=== PATIENT | female | born 1985 | race African-American/Black ===

== ENCOUNTER 2020-05-24 21:34 | Emergency (ER) | payer OTHER, SELFPAY ==
--- NOTE | ~2020-05-24 | XR_ITS ---
EXAMINATION: XR chest 2V EXAM DATE: 05/24/2020 22:11 INDICATION: Midsternal chest pain. Symptoms 1 day. TECHNIQUE: Frontal and lateral projections of the chest obtained and reviewed. There is no prior ruby dy for comparison. FINDINGS: The lungs are clear. There are no pleural effusions. Mild cardiomegaly. There is no pneu mothorax suspected. The bones and soft tissues are unremarkable. IMPRESSION: Mild cardiomegaly. Reviewed, dictated and finalized at location A. IMPRESSION: Mild cardiomegaly.
[2020-05-24 21:38] VITALS: BP 204/123; PULSE 83; RESP 17; TEMP 36.8; O2SAT 97
--- NOTE | 2020-05-24 21:38 | ECG_ITS ---
Measurements Intervals [place] Rate: 70 P: 41 [place]: 166 QRS: 1 QRSD: 94 T: 23 QT: 381 QTc: 413 Interpretive Statements SINUS RHYTHM DELAYED PRECORDIAL R/S TRANSITION BASELINE WANDER- I, II, III, AVR, AVL, AVF BORDERLINE ECG Electronically Signed On 05-25-2020 7:04:27 CDT by Juventino Bobo D.O.
--- NOTE | 2020-05-24 21:44 | ED.CHESTPAIN ---
HPI - Chest Pain General Chief Complaint: Chest Pain Stated Complaint: cp and discomfort all day Time Seen by Provider: 05/24/20 21:37 Source: RN notes reviewed History of Present Illness HPI narrative: Patient presents emergency department from home for chest pain. Patient states pain began upon awaking this morning pain is located in the lower midsternal chest and does not radiate. Described as a pressure. States pain is worse with deep inspiration. She denies any fevers or chills shortness of breath abdominal pain nausea vomiting or any other symptoms. States she took no pain medication for the symptoms today Related Data Allergies Allergy/AdvReac Type Severity Reaction Status Date / Time No Known Allergies Allergy Verified 05/24/20 21:42 Review of Systems Review of Systems: Narrative: Gen.: Denies fevers or chills ENT: Denies congestion Respiratory: Denies shortness of breath or cough CV: See HPI GI: Denies abdominal pain nausea, emesis or diarrhea Musculoskeletal: Denies back pain or muscle pain Neuro: Denies numbness, tingling, weakness or focal weakness Skin: Denies rash Except as documented, all other systems reviewed and negative [facility] Past Medical History Medical History (Updated 05/25/20 @ 01:23 by Amrik Eli DO) Patient denies significant medical history Family History Family History (Updated 12/16/17 @ 09:52 by DOCTOR UNKNOWN) Grandparent Hypertension Social History Social History Smoking status: Never smoker Alcohol intake: current Exam Narrative: Exam Narrative: APPEARANCE: No acute distress, nontoxic, resting in bed EYES: EOMI HEENT: Normocephalic, atraumatic, OMM RESPIRATORY: No respiratory distress Clear to auscultation bilaterally with no rhonchi wheezing or rales. CARDIOVASCULAR: Regular rate and rhythm without murmurs rubs or gallops. Chest: Tender palpation of her lower midsternal chest pain increased with deep inspiration ABDOMINAL: Soft, nontender, nondistended, no rebound or guarding MUSCULOSKELETAl: Moves all extremities. No clubbing, cyanosis or edema. NEURO: Awake and alert. Following commands, speech normal, no focal deficits SKIN:: Warm, dry. No rashes lesions or abrasions PSYCHIATRIC: Normal affect/mood, Course Course Emergency Course: Patient states pain is improved with Toradol and resolved with GI cocktail Patient meets PERC rule criteria and no further testing needs to be performed for pulmonary embolism. Discussed with patient results of workup and diagnosis. Discussed need for follow-up with primary care, proper use of medication, and reasons to return to the emergency department. Patient understands and agrees to current treatment plan Vital Signs Vital signs: Vital Signs Temperature 98.2 F 05/24/20 21:38 Pulse Rate 83 05/24/20 21:38 Respiratory Rate 17 05/24/20 21:38 Blood Pressure 204/123 H 05/24/20 21:38 Pulse Oximetry 97 05/24/20 21:38 Temperature 98.0 F 05/25/20 01:26 Pulse Rate 59 L 05/25/20 01:26 Respiratory Rate 18 05/25/20 01:26 Blood Pressure 174/98 H 05/25/20 01:26 Pulse Oximetry 100 05/25/20 01:26 MDM - Chest Pain MDM Narrative Medical decision making narrative: Patient's EKGs and labs are without significant high risk changes. Cardiac risk factors reviewed. Patient is felt likely low risk for ACS and reasonable for further risk stratification testing as an outpatient. Pain was not sudden or maximal in onset without tearing or ripping quality. No other signs of symptoms suggest aortic dissection. A low-risk Wells criteria is noted, PE is felt to be unlikely. No pneumonia seen on evaluation today. Patient is felt to be a reasonable candidate for continued evaluation as an outpatient. Pain constant all day today resolved with medications in ED. 2- troponins in ER Lab Data Result diagrams: 05/24/20 21:47 05/24/20 22:16 Cele
[2020-05-24 21:54] LABS: Basophils Absolute Auto 0.1 K/mm3 (0.0-0.1); Basophils Percent Auto 1.3 % (0.2-1.2); Eosinophils Absolute Auto 0.3 K/mm3 (0-0.3); Eosinophils Percent Auto 3.8 % (0-4.4); Hematocrit 37.7 % (37.0-47.0); Hemoglobin 12.3 g/dL (12.0-15.0); Immature Granulocyte Absolute 0.01 K/mm3 (0.00-0.031); Immature Granulocyte Percent A 0.1 % (0-0.5); Lymphocytes Absolute Auto 3.72 K/mm3 (0.9-3.2); Lymphocytes Percent Auto 46.7 % (18.3-44.2); Mean Corpuscular HGB Conc 32.6 g/dl (32-36); Mean Corpuscular Hemoglobin 28.1 pg (26-34); Mean Corpuscular Volume 86.1 fl (80-100); Mean Platelet Volume 11.7 fl (7.4-10.4); Monocytes Absolute Auto 0.5 K/mm3 (0.1-0.6); Monocytes Percent Auto 6.7 % (2.6-8.5); Neutrophils Absolute Auto 3.3 K/mm3 (1.3-6.7); Neutrophils Percent Auto 41.4 % (45.5-73.1); Platelet Count Result 298 k/mm3 (150-375); Red Blood Count 4.38 M/mm3 (4.2-5.4)
[2020-05-24 22:07] VITALS: PULSE 79
[2020-05-24] MEDS: KETOROLAC 30 MG/ML VIAL (*BKC) IV PUSH (22:27)
[2020-05-24 22:32] VITALS: BP 182/109; PULSE 57; RESP 16; O2SAT 99
[2020-05-24 22:32] LABS: INR 1.1; Partial Thromboplastin Time 28.2 SECONDS (22.3-36.8); Prothrombin Time 13.5 Seconds (11.1-14.7)
[2020-05-24 22:37] LABS: Anion Gap 8 mmol/L (8-16); Blood Urea Nitrogen 21 mg/dL (7-17); Calcium 9.2 mg/dL (8.4-10.2); Carbon Dioxide 25 mmol/L (22-30); Chloride 104 mmol/L (98-107); Estimated CRCL calculation 90 ml/min; Estimated Glomerular Filt Rate > 60; Glucose 98 mg/dL (65-105); Lipase 115 U/L (23-300); Potassium 3.7 mmol/L (3.4-5.0); Sodium 137 mmol/L (137-145)
[2020-05-24 22:49] LABS: Troponin I < 0.012 ng/mL (0.000-0.034)
[2020-05-24 22:50] LABS: Alanine Aminotransferase 9 U/L (4-35); Alkaline Phosphatase 62 U/L (38-126); Aspartate Amino Transferase 20 U/L (14-36); Bilirubin,Total 0.3 mg/dL (0.2-1.3)
[2020-05-24 22:57] VITALS: TEMP 36.8
[2020-05-24 23:31] VITALS: BP 167/98; PULSE 53; RESP 16; O2SAT 100
[2020-05-25 01:12] LABS: Troponin I < 0.012 ng/mL (0.000-0.034)
[2020-05-25 01:26] VITALS: BP 174/98; PULSE 59; RESP 18; TEMP 36.7; O2SAT 100
== END 2020-05-25 01:52 | disposition home or self-care (01) ==
PROVIDERS: Emergency Provider Emergency Medicine
DX: R07.89 Other chest pain (principal); I51.7 Cardiomegaly; R94.31 Abnormal electrocardiogram [ECG] [EKG]
CPT/HCPCS: 36415; 71046; 80048; 80076; 83690; 84484; 85025; 85610; 85730; 93005; 96374; 99284; A9270; J1885

== ENCOUNTER 2023-05-14 10:13 | Outpatient (CLI) | payer OTHER, SELFPAY ==
[2023-05-14 11:31] LABS: Alanine Aminotransferase 13 U/L (6-35); Albumin Level 4.1 g/dL (3.5-5.1); Alkaline Phosphatase 56 U/L (38-126); Anion Gap 3 mmol/L (8-16); Aspartate Amino Transferase 33 U/L (14-36); Bilirubin,Total 0.2 mg/dL (0.2-1.3); Blood Urea Nitrogen 17 mg/dL (7-17); Carbon Dioxide 32 mmol/L (22-30); Chloride 101 mmol/L (98-107); Cholesterol 108 mg/dL (0-200); Estimated Glomerular Filt Rate > 60; Glucose 100 mg/dL (65-110); HDL Direct 37 mg/dL; Potassium 3.4 mmol/L (3.4-5.0); Sodium 136 mmol/L (137-145); Triglycerides 131 mg/dL (<150)
[2023-05-14 12:38] LABS: Hemoglobin A1C 5.4 % (<5.7)
[2023-05-14 13:29] LABS: LDL Cholesterol Direct < 30 mg/dL
== END 2023-05-14 10:14 | disposition home or self-care (01) ==
LOC: ANHGOSHLAB 10:14
PROVIDERS: PCP Family Medicine; Visit Provider Family Medicine
DX: Z13.220 Encounter for screening for lipoid disorders (principal); E11.9 Type 2 diabetes mellitus without complications; Z13.228 Encounter for screening for other metabolic disorders
CPT/HCPCS: 36415; 80053; 80061; 83036

== ENCOUNTER 2024-02-12 13:35 | Emergency (ER) | payer OTHER, SELFPAY ==
[2024-02-12 13:54] VITALS: BP 160/108; PULSE 99; RESP 19; TEMP 38; O2SAT 100
--- NOTE | 2024-02-12 14:15 | ED.URI ---
HPI - URI/Sore Throat General Chief Complaint: Upper Respiratory Infection Stated Complaint: Flu Symptoms Time Seen by Provider: 02/12/24 14:09 Source: patient and RN notes reviewed Mode of arrival: ambulatory Limitations: no limitations History of Present Illness HPI Narrative: Patient presents today complaining body aches, subjective fever, sore throat, chills, cough since yesterday. Symptoms have worsened today. No [id number] treatment prior to arrival. She is also complaining of some urinary symptoms to include frequency, urgency. No dysuria or hematuria. She is not currently menstruating. No abdominal pain or flank pain. Related Data Allergies Allergy/AdvReac Type Severity Reaction Status Date / Time No Known Allergies Allergy Verified 02/12/24 14:13 Review of Systems Review of Systems: CONSTITUTIONAL: Denies sweats.+ fever, chills EYES: Denies visual changes, redness, or discharge. ENT: + sore throat CARDIOVASCULAR: Denies chest pain, palpitations, or edema. RESPIRATORY: Denies dyspnea.+ cough GASTROINTESTINAL: Denies abdominal pain, nausea, vomiting, or diarrhea. GENITOURINARY: Denies dysuria or hematuria.+ frequency, urgency SKIN: Denies rash, itching, or wounds. MUSCULOSKELETAL: Denies back pain, joint pain, or myalgia. NEUROLOGIC: Denies headache, numbness, tingling, or weakness. PSYCH: Denies depression or anxiety. [facility] Past Medical History Medical History Encounter for general adult medical examination without abnormal findings Patient denies significant medical history Family History Family History Grandparent Hypertension Father Alcoholism Social History Social History Smoking status: Never smoker Alcohol intake: current Alcohol use details: occasionally Substance use: never Lack of Transportation: No Lack of Food: Never True Current Housing: I Have Housing Concerned About Future Housing: No Difficulty Paying Gas/Electric Bills: No Difficulty Paying for Meds: No Currently Unemployed: No Education: Associate Degree Difficulty w/ Childcare or Family Care: No Living arrangements: with family Occupation/Education: occupation 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 Please see nursing chart for further information. There is no relevant family history pertinent to the presenting complaint Exam Narrative: GENERAL: Mildly ill-appearing, well-nourished, and in no acute distress. HEAD: Normocephalic, atraumatic. EYES: EOMI. No redness or drainage. Conjunctivae normal. ENT: Mucous membranes pink and moist. Nares clear. No rhinorrhea. TMs normal bilaterally. Throat mildly erythematous. Tonsils 2 to 3+ without exudate. Uvula midline. NECK: Normal AROM. Supple. No lymphadenopathy. CHEST: No respiratory distress. Clear to auscultation. HEART: Regular rate and rhythm. No murmur appreciated. EXTREMITIES: Normal range of motion. No edema. SKIN: Warm, dry, no rash. Capillary refill normal. Normal skin turgor. NEURO: No focal deficits. Alert and oriented x3. Gait steady. PSYCH: Normal affect. No signs of depression or anxiety. Course Course Level of Care: Express Care Visit Vital Signs Vital signs: Vital Signs Temperature 100.4 F H 02/12/24 13:54 Pulse Rate 99 02/12/24 13:54 Respiratory Rate 19 02/12/24 13:54 Blood Pressure 160/108 H 02/12/24 13:54 Pulse Oximetry 100 02/12/24 13:54 Oxygen Delivery Room Air 02/12/24 13:54 Temperature 100.4 F H 02/12/24 13:54 Pulse Rate 99 02/12/24 13:54 Respiratory Rate 19 0
== END 2024-02-12 14:33 | disposition home or self-care (01) ==
PROVIDERS: Emergency Provider Nurse Practitioner; PCP Family Medicine
DX: B34.9 Viral infection, unspecified (principal); N30.01 Acute cystitis with hematuria; Z20.822 Contact with and (suspected) exposure to COVID-19
CPT/HCPCS: 81003; 87081; 87086; 87088; 87426; 87804; 87880; 99213; G0463

== ENCOUNTER 2025-05-23 17:05 | Emergency (ER) | payer OTHER, SELFPAY ==
[2025-05-23 17:17] VITALS: BP 204/113; PULSE 61; RESP 16; TEMP 35.9; O2SAT 100
--- NOTE | 2025-05-23 17:22 | ED_ITS ---
HPI - Dizziness General Chief Complaint: Dizziness Stated Complaint: Chest Pain/Light headed Source: patient and RN notes reviewed Mode of arrival: ambulatory Limitations: no limitations History of Present Illness HPI Narrative: Patient is a 39-year-old female who presents to the [facility] with complaints of left-sided chest pain that has been ongoing past 4 days. She describes the pain as an intermittent tightness. She does state that the pain worsens with movement. She also reports dizziness and lightheadedness that has been ongoing for the last 4 days. She has known history of hypertension but has not been on meds for a year due to her Dr. leaving the practice. Her blood pressure is 204/113 upon arrival. Patient has no focal neurological deficits upon assessment. She is alert and oriented x4. Related Data Allergies Allergy/AdvReac Type Severity Reaction Status Date / Time No Known Allergies Allergy Verified 03/29/24 12:10 Review of Systems Review of Systems: CONSTITUTIONAL: Denies fever, chills, or sweats. EYES: Denies visual changes, redness, or discharge. ENT: Denies otalgia and sore throat CARDIOVASCULAR: Reports chest pain. RESPIRATORY: Denies cough or dyspnea. GASTROINTESTINAL: Denies abdominal pain, nausea, vomiting, or diarrhea. GENITOURINARY: Denies dysuria or hematuria. SKIN: Denies rash or itching. MUSCULOSKELETAL: Denies back pain, joint pain, or myalgia. NEUROLOGIC: Reports dizziness. Pertinent positives per HPI. [facility] Past Medical History Medical History Encounter for general adult medical examination without abnormal findings Patient denies significant medical history Family History Family History Grandparent Hypertension Father Alcoholism Social History Social History Smoking status: Never smoker Alcohol intake: current Alcohol use details: occasionally Substance use: never Lack of Transportation: No Lack of Food: Never True Current Housing: I Have Housing Concerned About Future Housing: No Difficulty Paying Gas/Electric Bills: No Difficulty Paying for Meds: No Currently Unemployed: No Education: Associate Degree Difficulty w/ Childcare or Family Care: No Living arrangements: with family Occupation/Education: occupation 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 There is no relevant family history pertinent to the patient complaint. Exam Narrative: GENERAL: This is a well-nourished, well-developed patient, in no apparent distress. HEAD: normocephalic, atraumatic. EYES: PERRL. Sclera clear/white. Vision is grossly intact. EARS: External ears normal, auditory canals clear and without drainage, TMs normal without perforation. Hearing grossly intact. NOSE: External nose normal with no obvious nasal discharge, nares without redness, no rhinorrhea. THROAT: Mucous membranes moist, posterior pharynx clear. NECK: Neck supple, non-tender without lymphadenopathy, masses or thyromegaly. CARDIOVASCULAR: Regular rate and rhythm without murmurs, gallops, or rubs. RESPIRATORY: Clear to auscultation. Breath sounds equal bilaterally. No wheezes, rales, or rhonchi. GASTROINTESTINAL: Abdomen soft, non-tender, nondistended. Bowel sounds are active. No hepato-splenomegaly, or palpable masses. No guarding. SKIN: warm, intact with no suspicious lesions or rash, good texture and turgor. NEURO: awake, alert, and oriented to person, place and time. There were no obvious focal neurologic abnormalities. Course Course Level of Care: Express Care Visit Vital Signs Vital signs: Vital Signs Temperature 96.6 F L 05/23/25 17:17 Pulse Rate 61 05/23/25 17:17 Respiratory Rate 16 05/23/25 17:17 Blood Pressure 204/113 H 05/23/25 17:17 Pulse Oximetry 100 05/23/25 17:17 Temperature 96.6 F L 05/23/25 17:17 Pulse Rate 61 05/23/25 17:17 Respiratory Rate 16 05/23/25 17:17 Blood Pressure 204/113 H 05/23/25 17:17 Pulse Oximetry 100 05/23/25 17:17 Reviewed Transfer Transfered to: [facility] Transportation: Other (private vehicle) Transfer rationale: chest pain, dizziness Accepting physician: Dr. Keane MDM - Dizziness MDM Narrative Medical decision making narrative: Patient was directed to [facility] ED for further evaluation and treatment for her chest pain and dizziness. Report was given to Dr. Keane, who accepted patient for transfer. Patient will be transferred via private vehicle. Differential Diagnosis Differential diagnosis: Likely orthostatic hypotension, cerebrovascular accident and other (acute coronary syndrome, angina, TIA, hypertensive urgency, hypertensive emergency) ECG Data EKG #1: ECG completion date: 05/23/25 ECG completion time: 17:25 Interpretation: Sinus bradycardia with a rate of 59 beats per minute. Normal axis, normal intervals, no acute ST elevation. Critical Care Time Critical Care Time Critical Care Time: No Discharge Plan Discharge Clinical Impression: Chest pain, Dizziness Patient Disposition: Acute Care Hospital Condition: Stable Additional Instructions: Go directly to [facility] ED for evaluation. Patient Language: Khmer Prescriptions: No Action losartan-hydrochlorothiazide 100-25 mg tablet 1 tablet PO DAILY Qty: 90 0RF Follow-up/Referrals: PHYSICIAN,CHARGEMASTER SPECIALIST [Primary Care Provider, Internal Medicine] Time of Disposition: 17:37
--- NOTE | 2025-05-23 17:23 | ECG_ITS ---
Test Date: 2025-05-23 17:25:29 Measurements Intervals [place] Rate: 59 P: 27 MD: 165 QRS: 1 QRSD: 88 T: 18 QT: 411 QTc: 409 Interpretive Statements SINUS BRADYCARDIA OTHERWISE NORMAL ELECTROCARDIOGRAM No previous ECG available for comparison Electronically Signed On 05-24-2025 15:57:32 CDT by Cricket Black M.D.
== END 2025-05-23 17:40 | disposition short-term general hospital (02) ==
PROVIDERS: Emergency Provider Nurse Practitioner
DX: R07.9 Chest pain, unspecified (principal); R42 Dizziness and giddiness
CPT/HCPCS: 93005; 99213; G0463

== ENCOUNTER 2025-05-23 18:01 | Emergency (ER) | payer OTHER, SELFPAY ==
--- NOTE | ~2025-05-23 | XR_ITS ---
Examination: XR chest 2V Clinical History: CP Comparison: 05/24/2020 Technique: PA and Lateral Findings: Cardiomediastinal silhouette normal size and configuration. Lungs clear. No acute bony abnormality. IMPRESSION: 1. No acute cardiopulmonary findings. Reviewed, dictated and finalized at location R.
--- NOTE | 2025-05-23 18:02 | ECG_ITS ---
Test Date: 2025-05-23 18:06:54 Measurements Intervals [place] Rate: 62 P: 32 CT: 153 QRS: -9 QRSD: 93 T: 13 QT: 399 QTc: 406 Interpretive Statements SINUS RHYTHM NORMAL ELECTROCARDIOGRAM Compared to ECG 05/23/2025 17:25:29 Sinus bradycardia no longer present Electronically Signed On 05-24-2025 15:59:25 CDT by Cricket Black M.D.
--- OUTSIDE RECORDS SUMMARY | 2025-05-23 18:02 | XMS_ITS | Clinical Summary ---
Author Organization [facility] Address [address] [place] [id number] Care Team Providers Care Online Merchant Name Role Phone Unavailable Primary Care Provider Unavailabl e Social History Tobacco Use Types Packs/Day Years Used Date Smoking Tobacco: Never Assessed Comments Unknown Sex and Gender Information Value Date Recorded Sex Assigned at Not on file Legal Sex Female 7:12 PM CDT Gender Identity Not on file Sexual Orientation Not on file Last Filed Vital Signs Vital Sign Reading Time Taken Comments Blood Pressure 148/96 11/03/2016 7:35 AM SALESPERSON NECKTIES Pulse 56 11/03/2016 7:35 AM SALESPERSON NECKTIES Temperature - - Respiratory Rate - - Oxygen Saturation - - Inhaled Oxygen Concentration - - Weight 103 kg (227 lb) 11/03/2016 7:35 AM SALESPERSON NECKTIES Height 166.4 cm (5' 5.5) 11/03/2016 7:35 AM SALESPERSON NECKTIES Body Mass Index 37.2 11/03/2016 7:35 AM SALESPERSON NECKTIES Plan of Treatment Health Maintenance Due Date Last Done Comments Cervical Cancer Screening Pa p Smear (Age 30 to 64) Every 3 Years 1984 Annual Physical 11/20/1987 Hepatitis C 2002 DTaP, Tdap and Td Vaccines ( 1 - Tdap) 11/20/2003 Hepatitis B Vaccines (1 of 3 - 19+ 3-dose series) 11/20/2003 HPV Vaccines (1 - 3-dose SCD M series) 11/20/2011 Cervical Cancer Screening Pa p with HPV Testing (Age 30 to 64) Every 5 Years 2014 Cervical Cancer Screening with HPV 2014 Mammogram Screening 2024 COVID-19 Vaccine (2023-2 5 season) 2025 Meningococcal B Vaccine Aged Out No l onger eligible based on patient's age to complete this topic Meningococcal Vaccine Aged Out No refugio lorelei eligible based on patient's age to complete this topic Pneumococcal Vaccine: Pediat rics (0 to 5 Years) and At-Risk Patients (6 to 49 Years) Aged Out No longer eligible b ased on patient's age to complete this topic RSV Immunizations Under 20 Months Aged Out No longer eligible based on patient's age to complete this topic
[2025-05-23 18:08] VITALS: BP 206/95; PULSE 63; RESP 19; TEMP 36.6; O2SAT 100
[2025-05-23 18:18] VITALS: BP 204/110; PULSE 60; PULSE 63; RESP 14; O2SAT 100
[2025-05-23 18:26] LABS: Hematocrit 37.8 % (37.0-47.0); Hemoglobin 11.9 g/dL (12.0-15.0); Immature Granulocyte Percent A 0.1 % (0-0.5); Lymphocytes Absolute Auto 3.10 K/mm3 (0.9-3.2); Mean Corpuscular HGB Conc 31.5 g/dl (32-36); Mean Corpuscular Hemoglobin 27.4 pg (26-34); Mean Corpuscular Volume 87.1 fl (80-100); Nucleated Red Blood Cells Absolute Auto 0.000 K/mm3 (0.0-0.012); Nucleated Red Blood Cells Perc 0.0 % (0.0-0.2); Platelet Count Result 273 k/mm3 (150-375); Red Blood Count 4.34 M/mm3 (4.2-5.4); White Blood Count 6.8 K/mm3 (4.5-10.0)
[2025-05-23] MEDS: LOSARTAN POTASSIUM 100 MG TABLET PO (18:37)
[2025-05-23 18:38] LABS: INR 1.0; Prothrombin Time 13.4 Seconds (11.1-14.7)
[2025-05-23] MEDS: KETOROLAC 30 MG/ML VIAL (*BKC) IV PUSH (18:38)
--- NOTE | 2025-05-23 18:38 | ED_ITS ---
HPI - Chest Pain General Chief Complaint: Chest Pain Stated Complaint: chest pain, dizzy, SOB Time Seen by Provider: 05/23/25 18:17 History of Present Illness HPI narrative: This is a 39-year-old female with history of hypertension who presents to the ED for chest pain. Patient states of that past 4 days, she has been having sternal and left lower chest pain. She has history of hypertension but she has not been on her prescribed medication as she has not been able to get in with her PCP. She has never had this pain before. Denies any recent illnesses. She has dyspnea on exertion but this has been going on for the past several weeks. She is a nonsmoker. Denies headache, changes vision, hematuria. Related Data Allergies Allergy/AdvReac Type Severity Reaction Status Date / Time No Known Allergies Allergy Verified 05/23/25 18:14 Review of Systems 2 Review of Systems: Gen.: Denies fevers or chills Eyes: Denies eye pain or visual change ENT: Denies congestion Respiratory: Denies shortness of breath or cough CV: As per HPI GI: Denies abdominal pain nausea, emesis or diarrhea denies burning, urgency, frequency or hematuria Musculoskeletal: Denies back pain or muscle pain Neuro: Denies numbness, tingling, weakness or focal weakness Skin: Denies rash Except as documented, all other systems reviewed and negative [facility] Past Medical History Medical History Encounter for general adult medical examination without abnormal findings Patient denies significant medical history Family History Family History Grandparent Hypertension Father Alcoholism Social History Social History Smoking status: Never smoker Alcohol intake: current Alcohol use details: occasionally Substance use: never Lack of Transportation: No Lack of Food: Never True Current Housing: I Have Housing Concerned About Future Housing: No Difficulty Paying Gas/Electric Bills: No Difficulty Paying for Meds: No Currently Unemployed: No Education: Associate Degree Difficulty w/ Childcare or Family Care: No Living arrangements: with family Occupation/Education: occupation 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 CARDIOVASCULAR: Regular rate and rhythm without murmurs rubs or gallops. Tenderness palpation to the lower sternum without crepitus or deformity. ABDOMINAL: Soft, nontender, nondistended, no rebound or guarding MUSCULOSKELETAl: Moves all extremities. No clubbing, cyanosis or edema. NEURO: Awake and alert. Following commands, speech normal, no focal deficits SKIN:: Warm, dry. No rashes lesions or abrasions PSYCHIATRIC: Normal affect/mood, Course Vital Signs Vital signs: Vital Signs Temperature 98 F 05/23/25 18:08 Pulse Rate 63 05/23/25 18:08 Respiratory Rate 19 05/23/25 18:08 Blood Pressure 206/95 H 05/23/25 18:08 Pulse Oximetry 100 05/23/25 18:08 Oxygen Delivery Room Air 05/23/25 18:08 Temperature 98 F 05/23/25 18:08 Pulse Rate 58 L 05/23/25 19:08 Respiratory Rate 20 05/23/25 19:08 Blood Pressure 156/99 H 05/23/25 19:08 Pulse Oximetry 100 05/23/25 19:08 Oxygen Delivery Room Air 05/23/25 18:18 MDM - Chest Pain MDM Narrative Medical decision making narrative: 39-year-old female who presents to the ED for chest pain tension. On initial evaluation, patient was in no acute distress, afebrile, hemodynamically stable. She is hypertensive to 200/90s. She had reproducible chest wall tenderness to palpation. Otherwise heart and lungs clear. Abdomen soft nontender. She had a nonfocal neuro exam. She was given her prior dose of losartan-HCTZ, she was also given Toradol and Lidoderm. Cbc and CMP without significant abnormalities. Troponin negative. Chest x-ray showed no acute process. Blood pressure improved to 156/99. She had complete resolution of her chest pain. As she does not have a PCP at this time, she was given referral to [facility]. She was given a refill of her losartan-HCTZ. Patient was agreeable to the plan. Given strict return precautions. Differential Diagnosis Differential diagnosis: Likely other (hypertensive emergency, hypertensive urgency, acs, costochondritis) Medical Records Data Attestation: I reviewed the patient's medical records. Lab Data Attestation: I reviewed the patient's lab results. 05/23/25 18:17 05/23/25 18:17 Labs: Lab Results 05/23/25 Range/Units 18:17 WBC 6.8 (4.5-10.0) K/mm3 RBC 4.34 (4.2-5.4) M/mm3 Hgb 11.9 L (12.0-15.0) g/dL Hct 37.8 (37.0-47.0) % MCV 87.1 (80-100) fl MCH 27.4 (26-34) pg MCHC 31.5 L (32-36) g/dl RDW 14.6 H (11.5-14.5) % Plt Count 273 (150-375) k/mm3 MPV 11.2 H (7.4-10.4) fl Immature Gran % (Auto) 0.1 (0-0.5) % Neut % (Auto) 43.3 L (45.5-73.1) % Lymph % (Auto) 45.3 H (18.3-44.2) % [place] % (Auto) 8.3 (2.6-8.5) % Eos % (Auto) 2.0 (0-4.4) % Baso % (Auto) 1.0 (0.2-1.2) % Lymph # (Auto) 3.10 (0.9-3.2) K/mm3 [place] # (Auto) 0.6 (0.1-0.6) K/mm3 Eos # (Auto) 0.1 (0-0.3) K/mm3 Baso # (Auto) 0.1 (0.0-0.1) K/mm3 Abs Immat Gran (auto) 0.01 (0.00-0.031) K/mm3 Absolute Neuts (auto) 3.0 (1.3-6.7) K/mm3 Absolute Nucleated RBC 0.000 (0.0-0.012) K/mm3 Nucleated RBC % 0.0 (0.0-0.2) % PT 13.4 (11.1-14.7) Seconds INR 1.0 APTT 27.1 (22.3-36.8) Seconds Sodium 138 (137-145) mmol/L Potassium 3.3 L (3.4-5.0) mmol/L Chloride 104 (98-107) mmol/L Carbon Dioxide 26 (22-30) mmol/L Anion Gap 8 (4-12) mmol/L BUN 15 (7-17) mg/dL Creatinine 0.97 (0.7-1.0) mg/dL Estim Creat Clear Calc 80 ml/min Estimated GFR > 60 (59 - ) Glucose 108 (65-110) mg/dL Calcium 9.5 (8.4-10.2) mg/dL Total Bilirubin 0.3 (0.2-1.3) mg/dL AST 24 (14-36) U/L ALT 11 (6-35) U/L Alkaline Phosphatase 72 (38-126) U/L Troponin I < 0.012 (0.000-0.034) ng/mL Total Protein 7.9 (6.3-8.2) g/dL Albumin 4.1 (3.5-5.1) g/dL Lipase 84 (23-300) U/L Imaging Data Radiologist's impression: Impressions Chest X-Ray 05/23/25 18:30 IMPRESSION: 1. No acute cardiopulmonary findings. ECG Data EKG #1: ECG completion date: 05/23/25 ECG completion time: 18:06 Interpretation: Normal sinus rhythm rate of 62, normal axis, normal intervals, no acute ST or T- wave changes Discharge Plan Discharge Clinical Impression: Atypical chest pain Hypertension Qualifiers: Hypertension type: unspecified Qualified Code(s): I10 - Essential (primary) hypertension Patient Disposition: Home Condition: Stable Instructions: Antibiotic Form, Chest Pain (ED), Hypertension (ED) Additional Instructions: Take the losartan-hydrochlorothiazide as prescribed. You were also given a prescription for Lidoderm, take this as prescribed. Urine given a referral to Dr. Montesinos, follow-up with his office in the next week to establish care. Return to the ED for any new or worsening symptoms. Patient Language: Spanish Prescriptions: New lidocaine [Lidocan III] 5 % adhesive patch,medicated 1 patch topical DAILY Qty: 15 0RF Rx Instructions: leave on most painful area for up to 12 hrs losartan-hydrochlorothiazide 100-25 mg tablet 1 tablet PO DAILY Qty: 30 0RF No Action losartan-hydrochlorothiazide 100-25 mg tablet 1 tablet PO DAILY Qty: 90 0RF Follow-up/Referrals: PHYSICIAN,SUPERVISOR ACCOUNTS RECEIVABLE [Primary Care Provider, Internal Medicine] Davion Montesinos MD [Physician, Family Practice]
[2025-05-23 18:39] LABS: Partial Thromboplastin Time 27.1 Seconds (22.3-36.8)
[2025-05-23 18:41] LABS: Alanine Aminotransferase 11 U/L (6-35); Albumin Level 4.1 g/dL (3.5-5.1); Alkaline Phosphatase 72 U/L (38-126); Anion Gap 8 mmol/L (4-12); Aspartate Amino Transferase 24 U/L (14-36); Bilirubin,Total 0.3 mg/dL (0.2-1.3); Blood Urea Nitrogen 15 mg/dL (7-17); Calcium 9.5 mg/dL (8.4-10.2); Carbon Dioxide 26 mmol/L (22-30); Chloride 104 mmol/L (98-107); Estimated CRCL calculation 80 ml/min; Estimated Glomerular Filt Rate > 60; Glucose 108 mg/dL (65-110); Lipase 84 U/L (23-300); Potassium 3.3 mmol/L (3.4-5.0); Sodium 138 mmol/L (137-145); Total Protein 7.9 g/dL (6.3-8.2)
[2025-05-23] MEDS: LIDOCAINE 5% PATCH 1 PATCH TRANSDERM (18:41)
[2025-05-23 18:48] LABS: Troponin I < 0.012 ng/mL (0.000-0.034)
[2025-05-23 19:08] VITALS: BP 156/99; PULSE 58; RESP 20; O2SAT 100
== END 2025-05-23 19:09 | disposition home or self-care (01) ==
PROVIDERS: Emergency Medicine; Emergency Provider Student in an Organized Health Care Education/Training Program
DX: R07.89 Other chest pain (principal); I10 Essential (primary) hypertension
CPT/HCPCS: 36415; 71046; 80053; 83690; 84484; 85025; 85610; 85730; 93005; 96374; 99284; A9270; J1885

== ENCOUNTER 2025-09-08 16:33 | Emergency (ER) | payer OTHER, SELFPAY ==
[2025-09-08 16:47] VITALS: BP 200/112; PULSE 67; RESP 18; TEMP 36.3; O2SAT 100
[2025-09-08 17:00] VITALS: BP 198/110
--- NOTE | 2025-09-08 17:31 | ED_ITS ---
HPI - General Adult General Chief complaint: Headache Stated complaint: headache, thinks high B/P Time Seen by Provider: 09/08/25 17:31 Source: patient, RN notes reviewed and old records reviewed Mode of arrival: ambulatory Limitations: no limitations History of Present Illness HPI narrative: Year old female presents to the [facility] with headache that has been on 1st stick. States that she has been trying to lose weight? eat better. Patient presents that since yesterday she has had a excruciating headache. Denies any neuro symptoms. Has not taken blood pressure medication in several months Treatments prior to arrival: none Related Data Allergies Allergy/AdvReac Type Severity Reaction Status Date / Time No Known Allergies Allergy Verified 09/08/25 17:02 Review of Systems Review of Systems: All systems reviewed & are unremarkable except as noted in HPI and below Constitutional: Constitutional: Reports no additional constitutional complaints ENT: Reports system reviewed and no additional complaints, except as documented Cardiovascular: Cardiovascular: Reports no additional cardiovascular co mplaints, Denies chest pain and Denies dyspnea Respiratory: Respiratory: Reports no additional respiratory complaints, Denies chest congestion, Denies cough and Denies dyspnea Musculoskeletal: Musculoskeletal: Reports no additional musculoskeletal complaints Integumentary/Breasts: Skin/Breast: Reports system reviewed and no additional complaints, except as docu Neurologic: Reports as per HPI, Denies dizziness, Denies syncope, Reports headache(s) and Denies weakness PMFSH Past Medical History Medical History Encounter for general adult medical examination without abnormal findings Patient denies significant medical history Family History Family History Grandparent Hypertension Father Alcoholism Social History Social History Smoking status: Never smoker Alcohol intake: current Alcohol use details: occasionally Substance use: never Lack of Transportation: No Lack of Food: Never True Current Housing: I Have Housing Concerned About Future Housing: No Difficulty Paying Gas/Electric Bills: No Difficulty Paying for Meds: No Currently Unemployed: No Education: Associate Degree Difficulty w/ Childcare or Family Care: No Living arrangements: with family Occupation/Education: occupation 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 There is no relevant family history pertinent to the patient complaint. Exam Const: General: cooperative, healthy appearing, comfortable, no acute distress, well developed, alert and well nourished Nutritional Appearance: well nourished and obese Orientation/consciousness: patient oriented x3 Limitations: no limitations HENMT: Head: normal to inspection Eyes: General: appearance normal, both eyes and all related structures Alignment and Position: alignment normal Neck: Neck: normal visual inspection, full ROM, no lymphadenopathy and no meningeal signs Chest: Chest palpation & inspection: normal inspection of the chest Resp: Effort & Inspection: normal respiratory effort and able to speak in complete sentences Cardio: Rate: regular rate Skin: General skin exam: normal color and no rashes or lesions noted Neuro: General: patient oriented x3, gait normal, tone normal, moves all extremities, no meningeal signs and no focal motor deficits Cognition (Neuro): normal cognition Speech: normal speech Gait exam (Neuro): Normal gait present Extrem: General: normal to inspection, full ROM, capillary refill normal and normal gait Psych: Appearance: grossly normal and well kempt Mental Status: mental status grossly normal Speech and movement: Normal speech and movement present and Clear speech present Affect: normal affect Attitude: cooperative Course Course Level of Care: Express Care Visit Vital Signs Vital signs: Vital Signs Temperature 97.3 F L 09/08/25 16:47 Pulse Rate 67 09/08/25 16:47 Respiratory Rate 18 09/08/25 16:47 Blood Pressure 200/112 H 09/08/25 16:47 Pulse Oximetry 100 09/08/25 16:47 Oxygen Delivery Room Air 09/08/25 16:47 Temperature 97.3 F L 09/08/25 16:47 Pulse Rate 67 09/08/25 16:47 Respiratory Rate 18 09/08/25 16:47 Blood Pressure 198/110 H 09/08/25 17:00 Pulse Oximetry 100 09/08/25 16:47 Oxygen Delivery Room Air 09/08/25 16:47 reviewed MDM MDM Narrative Medical decision making narrative: Patient sitting in exam room. Patient appears uncomfortable, blood pressure is elevated Patient denies any light sensitivity, nausea vomiting or chest pain. No neuro deficits noted Patient being transferred for higher level All questions have been answered, and the patient deny any further questions Some parts of this dictation were generated by voice recognition software and may contain typographical and/or grammatical inaccuracies. Differential Diagnosis Differential Diagnosis: Differential diagnostic considerations for headache include ?ICH, IC infx, migraine, tension [place], CVA/TIA, vasculitis/arteritis, cluster headache, dissection (carotid/vertebral), tumor/mass/abscess, thrombosis, meningitis, sinusitis, post-concussion syndrome. Medical Records I have reviewed the following patient records and this information was taken into consideration when formulating the assessment and plan.: previous ER visits and previous clinic visits Discharge Plan Discharge Clinical Impression: Elevated blood pressure reading, Headache Patient Disposition: Acute Care Hospital Condition: Stable Patient Language: Micronesian Prescriptions: No Action lidocaine [Lidocan III] 5 % adhesive patch,medicated 1 patch topical DAILY Qty: 15 0RF Rx Instructions: leave on most painful area for up to 12 hrs losartan-hydrochlorothiazide 100-25 mg tablet 1 tablet PO DAILY Qty: 30 0RF losartan-hydrochlorothiazide 100-25 mg tablet 1 tablet PO DAILY Qty: 90 0RF Follow-up/Referrals: UNKNOWN,DOCTOR [Primary Care Provider] Time of Disposition: 17:41
== END 2025-09-08 17:40 | disposition short-term general hospital (02) ==
PROVIDERS: Emergency Provider Nurse Practitioner
DX: I10 Essential (primary) hypertension (principal); R51.9 Headache, unspecified; Z91.148 Patient's other noncompliance with medication regimen for other reason
CPT/HCPCS: 99212; G0463

== ENCOUNTER 2025-09-08 18:10 | Emergency (ER) | payer OTHER, SELFPAY ==
--- NOTE | ~2025-09-08 | XR_ITS ---
EXAMINATION: XR chest 2V 09/08/2025 18:55 INDICATION: Chest pain PROCEDURE: 2 view chest COMPARISON: 05/23/2025 FINDINGS: The lungs are clear. The cardiomediastinal silhouette is within normal limits. There are no pleural effusions. There is no pneumothorax suspected. IMPRESSION: 1: NO ACUTE CARDIOPULMONARY DISEASE. Reviewed, dictated and finalized at location [facility]
--- NOTE | ~2025-09-08 | CT_ITS ---
EXAMINATION: CT BRAIN W/O DATE: 09/08/2025 18:49 INDICATION: Headache. Hypertension. TECHNIQUE: Computed tomography (CT) of the head was performed without intravenous contrast. The dose-length product was 605.33 mGy-cm. COMPARISON: No prior studies for comparison. FINDINGS: Normal brain parenchymal volume for age. Normal tay-white differentiation. No acute intracranial hemorrhage, infarction, mass or mass effect. No ventriculomegaly or midline shift. Midline sagittal images demonstrate a normal corpus callosum, craniovertebral junction and sella turcica. Basilar cisterns are patent. Paranasal sinuses and mastoids are pneumatized. No depressed skull fractures. IMPRESSION: 1. No acute intracranial abnormality. Reviewed, dictated and finalized at location O. TECHNICIAN
--- NOTE | 2025-09-08 18:12 | ECG_ITS ---
Test Date: 2025-09-08 18:33:12 Measurements Intervals [place] Rate: 59 P: 25 RI: 157 QRS: -5 QRSD: 84 T: 14 QT: 405 QTc: 402 Interpretive Statements SINUS BRADYCARDIA CONSIDER ANTERIOR INFARCT, AGE INDETERMINATE BORDERLINE T WAVE ABNORMALITY- INFERIOR LEADS ABNORMAL ECG Compared to ECG 05/23/2025 18:06:54 NO SIGNIFICANT CHANGE Electronically Signed On 09-08-2025 19:46:12 [employer] SUPERVIS[employer] by Juventino Bobo D.O.
--- OUTSIDE RECORDS SUMMARY | 2025-09-08 18:12 | XMS_ITS | Data Portability ---
Author Organization [employer] , [facility] Address [address] [place] [address] Assessment No assessment recorded. Plan of Treatment Reminders Order Date Submit Date Provider Last Modified By Organization Details Last Modified Time Details Appointments None recorded. Lab bacterial vaginosis + vaginitis panel, vaginal 2023 024 [facility], [address] [place], [address], 4 15:16:59 CT + NG DNA, PCR, unspecified specimen 2023 024 [facility], [address] [place], [address], 4 15:17:01 HPV E6+E7 mRNA, qualitative PCR, cervix 2023 024 [facility], [address] [place], [address], 4 09:57:16 pap, LB 2023 024 [facility], [address] [facility], [place], [address], 4 10:27:55 bacterial vaginosis + vaginitis panel, vaginal 2022 023 [facility], [address] [place], [address], 3 17:28:54 bacterial vaginosis + vaginitis panel, vaginal 2021 [facility], [address] [place], [address], 2 09:58:18 bakari wet prep 2021 [email or web address] 0 [facility], [address], [place], [address], 2 11:05:17 CT + NG DNA, PCR, unspecified specimen 2021 [facility], [address] [place], [address], 2 14:52:15 Referral None recorded. Procedures None recorded. Surgeries None recorded. Imaging US, transvagina l 2021 Zhou Heiyae r3 [facility], [address] [place], [address], 3 17:13:51 MAMMO, diagnostic, tomosynthes is, bilateral - Left nipple inversion. Follow up u/s if indicated 2021 Zhou Heiyae r3 [facility], [address] [place], [address], 3 17:13:51 Medication Orders metronidazo le 500 mg tablet [address] [id number], [address] , [place], [place], [id number], 4 12:30:51 metronidazo le 500 mg tablet 2021 [email or web address][id number], [address] , [place], [place], [id number], 4 12:30:51 Patient TargetsNo targets recorded. Patient Instructions Encounter Date Encounter Id Patient Instructions Last Modified By Organization Details Last Modified Time 10/10/2021 [id number] vaginitis: care instructions [email or web address] Not available 10/10/2021 11:05:17 - Refrain from washcloth/loofah use, goncalves hubert products, frequent pantiliner use. - Pt instructed to wear cotton underwear, changing out of workout clothes quickly, hypoallergenic soap. -Discussed vaginal hygiene. -Encouraged safe sex. - Use a detergent free of dyes, enzymes and perfumes. Avoid using fabric softeners. Soak and rinse when using a stain removing product and then wash normally. Do not use a fabric softener. Soak and rinse in clear water all underwear and towels on when you have used a stain removing product. Then wash in your regular washing cycle. -Avoid tight clothing, especially clothing made of synthetic fabrics. Remove wet bathing and exercise clothing as soon as you can. - Avoid bath soaps, lotions, gels, etc. which contain perfumes. This includes many baby products and feminine hygiene products marked mild or for vaginal health. We suggest any of the following soaps: Dove-Hypoallergeni c, Neutrogena, Basis, or Pearls. Do not use soap directly on the vulvar skin just warm water and your hand will keep the vulvar area clean without irritating the skin. - Avoid all bubble baths, bath salts and scented oils. -Do not use hot water while bathing or showering. Only luke-warm water should only be used. -Avoid all feminine hygiene sprays, perfumes, adult, or baby wipes. Pour lukewarm water over the vulva after urinating if urine causes burning of the skin. Pat dry rather than rubbing with a towel. - Avoid the use of deodorized pads and tampons. Tampons should be used when the blood flow is heavy enough to soak one tampon in four hours or less. Tampons are safe for most women, but wearing them too long or when the blood flow is light may result in vaginal infection, increased discharge, odor, or toxic shock syndrome. Also, use only pads that have a cotton liner that comes in contact with your skin (no dry weave pads). - Avoid all over the counter creams or ointments, except A&D Ointment (if you have wool allergy do not use A&D). -DO NOT DOUCHE. Baking soda soaks will help rinse away extra discharge and help with odor. -DO NOT SHAVE, wax or laser the vulvar area (the bikini line is ok). -Some women may have problems with chronic dampness. Keeping dry is important. Choose cotton fabrics whenever you can. -Keep an extra pair of underwear with you in a small bag and change if you become damp during the day at work/school. -Gold Flores Powder or Zeosorb Powder may be applied to the vulva and groin area one to two times per day to help absorb moisture. -Dryness and irritation during intercourse may be helped by using a lubricant. Use a small amount of a pure vegetable oil/olive oil or Crisco (solid or oil). The vegetable oils contain no chemicals to irritate vulvar/vaginal skin. Vegetable oils will rinse away with water and will not increase your chances of infection. Water-based products like K-Y Jelly are helpful, but may tend to dry before intercourse is over and also contain chemicals that can irritate your vulvar skin. It may be helpful to use a non-lubricated, non-spermicidal condom, and use vegetable oil as the lubricant. This will help keep the semen off the skin which can decrease burning and irritation after intercourse. CONTROL OPTIONS 1. All hormonal contraceptives will have an effect on vaginal secretions but should not increase your frequency of vaginitis. 2. Lubricated condoms, contraceptive jellies, creams, or sponges may cause itching and burning. Ask your health care provider for help. 3. The use of latex condoms with a vegetable oil as a lubricant (#14 above) is suggested to protect your skin. Oil based lubricants may affect the integrity of condoms when used for control or prevention of sexually transmitted diseases. Our experience has not found this to be a problem with vegetable based oils. However, the Centers for Disease Control recommends that condoms not be used with any oil based lubricants for control or prevention of sexually transmitted disease. Discussed ureaplasma/mycopla sma testing and treatment, if indicated. [email or web address] Not available 10/04/2021 11:24:46 09/03/2022 [id number] A healthy lifestyle: care instructions [email or web address] Not available 09/03/2022 10:36:10 substance use disorder: care instructions [email or web address] Not available 09/03/2022 10:36:09 tobacco cessation [email or web address] Not availab le 09/03/2022 10:36:09 Following the MyPlate Food Guide: Care Instructions [email or web address] Not available 09/03/2022 10:36:10 exercise program : getting started [email or web address] Not available 09/03/2022 10:36:10 - Refrain from washcloth/loofah use, goncalves hubert products, frequent pantiliner use. - Pt instructed to wear cotton underwear, changing out of workout clothes quickly, hypoallergenic soap. -Discussed vaginal hygiene. -Encouraged safe sex. - Use a detergent free of dyes, enzymes and perfumes. Avoid using fabric softeners. Soak and rinse when using a stain removing product and then wash normally. Do not use a fabric softener. Soak and rinse in clear water all underwear and towels on when you have used a stain removing product. Then wash in your regular washing cycle. -Avoid tight clothing, especially clothing made of synthetic fabrics. Remove wet bathing and exercise clothing as soon as you can. - Avoid bath soaps, lotions, gels, etc. which contain perfumes. This includes many baby products and feminine hygiene products marked mild or for vaginal health. We suggest any of the following soaps: Dove-Hypoallergeni c, Neutrogena, Basis, or Pearls. Do not use soap directly on the vulvar skin just warm water and your hand will keep the vulvar area clean without irritating the skin. - Avoid all bubble baths, bath salts and scented oils. -Do not use hot water while bathing or showering. Only luke-warm water should only be used. -Avoid all feminine hygiene sprays, perfumes, adult, or baby wipes. Pour lukewarm water over the vulva after urinating if urine causes burning of the skin. Pat dry rather than rubbing with a towel. - Avoid the use of deodorized pads and tampons. Tampons should be used when the blood flow is heavy enough to soak one tampon in four hours or less. Tampons are safe for most women, but wearing them too long or when the blood flow is light may result in vaginal infection, increased discharge, odor, or toxic shock syndrome. Also, use only pads that have a cotton liner that comes in contact with your skin (no dry weave pads). - Avoid all over the counter creams or ointments, except A&D Ointment (if you have wool allergy do not use A&D). -DO NOT DOUCHE. Baking soda soaks will help rinse away extra discharge and help with odor. -DO NOT SHAVE, wax or laser the vulvar area (the bikini line is ok). -Some women may have problems with chronic dampness. Keeping dry is important. Choose cotton fabrics whenever you can. -Keep an extra pair of underwear with you in a small bag and change if you become damp during the day at work/school. -Gold Flores Powder or Zeosorb Powder may be applied to the vulva and groin area one to two times per day to help absorb moisture. -Dryness and irritation during intercourse may be helped by using a lubricant. Use a small amount of a pure vegetable oil/olive oil or Crisco (solid or oil). The vegetable oils contain no chemicals to irritate vulvar/vaginal skin. Vegetable oils will rinse away with water and will not increase your chances of infection. Water-based products like K-Y Jelly are helpful, but may tend to dry before intercourse is over and also contain chemicals that can irritate your vulvar skin. It may be helpful to use a non-lubricated, non-spermicidal condom, and use vegetable oil as the lubricant. This will help keep the semen off the skin which can decrease burning and irritation after intercourse. CONTROL OPTIONS 1. All hormonal contraceptives will have an effect on vaginal secretions but should not increase your frequency of vaginitis. 2. Lubricated condoms, contraceptive jellies, creams, or sponges may cause itching and burning. Ask your health care provider for help. 3. The use of latex condoms with a vegetable oil as a lubricant (#14 above) is suggested to protect your skin. Oil based lubricants may affect the integrity of condoms when used for control or prevention of sexually transmitted diseases. Our experience has not found this to be a problem with vegetable based oils. However, the Centers for Disease Control recommends that condoms not be used with any oil based lubricants for control or prevention of sexually transmitted disease. Discussed ureaplasma/mycopla sma testing and treatment, if indicated. [email or web address] Not available 09/03/2022 10:19:22 10/15/2022 [id number] vaginitis: care instructions [id number] Not available 10/15/2022 11:06:33 safer sex: care instructions [email or web address] Not available 10/15/2022 11:06:33 - Refrain from washcloth/loofah use, goncalves hubert products, frequent pantiliner use. - Pt instructed to wear cotton underwear, changing out of workout clothes quickly, hypoallergenic soap. -Discussed vaginal hygiene. -Encouraged safe sex. - Use a detergent free of dyes, enzymes and perfumes. Avoid using fabric softeners. Soak and rinse when using a stain removing product and then wash normally. Do not use a fabric softener. Soak and rinse in clear water all underwear and towels on when you have used a stain removing product. Then wash in your regular washing cycle. -Avoid tight clothing, especially clothing made of synthetic fabrics. Remove wet bathing and exercise clothing as soon as you can. - Avoid bath soaps, lotions, gels, etc. which contain perfumes. This includes many baby products and feminine hygiene products marked mild or for vaginal health. We suggest any of the following soaps: Dove-Hypoallergeni c, Neutrogena, Basis, or Pearls. Do not use soap directly on the vulvar skin just warm water and your hand will keep the vulvar area clean without irritating the skin. - Avoid all bubble baths, bath salts and scented oils. -Do not use hot water while bathing or showering. Only luke-warm water should only be used. -Avoid all feminine hygiene sprays, perfumes, adult, or baby wipes. Pour lukewarm water over the vulva after urinating if urine causes burning of the skin. Pat dry rather than rubbing with a towel. - Avoid the use of deodorized pads and tampons. Tampons should be used when the blood flow is heavy enough to soak one tampon in four hours or less. Tampons are safe for most women, but wearing them too long or when the blood flow is light may result in vaginal infection, increased discharge, odor, or toxic shock syndrome. Also, use only pads that have a cotton liner that comes in contact with your skin (no dry weave pads). - Avoid all over the counter creams or ointments, except A&D Ointment (if you have wool allergy do not use A&D). -DO NOT DOUCHE. Baking soda soaks will help rinse away extra discharge and help with odor. -DO NOT SHAVE, wax or laser the vulvar area (the bikini line is ok). -Some women may have problems with chronic dampness. Keeping dry is important. Choose cotton fabrics whenever you can. -Keep an extra pair of underwear with you in a small bag and change if you become damp during the day at work/school. -Gold Flores Powder or Zeosorb Powder may be applied to the vulva and groin area one to two times per day to help absorb moisture. -Dryness and irritation during intercourse may be helped by using a lubricant. Use a small amount of a pure vegetable oil/olive oil or Crisco (solid or oil). The vegetable oils contain no chemicals to irritate vulvar/vaginal skin. Vegetable oils will rinse away with water and will not increase your chances of infection. Water-based products like K-Y Jelly are helpful, but may tend to dry before intercourse is over and also contain chemicals that can irritate your vulvar skin. It may be helpful to use a non-lubricated, non-spermicidal condom, and use vegetable oil as the lubricant. This will help keep the semen off the skin which can decrease burning and irritation after intercourse. CONTROL OPTIONS 1. All hormonal contraceptives will have an effect on vaginal secretions but should not increase your frequency of vaginitis. 2. Lubricated condoms, contraceptive jellies, creams, or sponges may cause itching and burning. Ask your health care provider for help. 3. The use of latex condoms with a vegetable oil as a lubricant (#14 above) is suggested to protect your skin. Oil based lubricants may affect the integrity of condoms when used for control or prevention of sexually transmitted diseases. Our experience has not found this to be a problem with vegetable based oils. However, the Centers for Disease Control recommends that condoms not be used with any oil based lubricants for control or prevention of sexually transmitted disease. Discussed ureaplasma/mycopla sma testing and treatment, if indicated. [email or web address] Not available 10/10/2022 17:01:04 04/08/2024 [id number] A healthy lifestyle: care instructions [email or web address] Not available 04/08/2024 16:51:25 substance use disorder: care instructions [email or web address] Not available 04/08/2024 16:51:25 tobacco cessation [id number] Not availab le 04/08/2024 16:51:25 Following the MyPlate Food Guide: Care Instructions [id number] Not available 04/08/2024 16:51:25 exercise program : getting started [email or web address] Not available 04/08/2024 16:51:25 Reason for Referral None Reported. Results Created Date Observation Date Name Description Value Unit Range Abnormal Flag Note LastModifiedBy Organization Detail LastModifiedTime 10/10/19 22 10/11/2021 CT/NG chlamydia trachomatis CT neg negati ve If both Pap and Endoc ervic al swabs are colle cted, the Prese rvCyt Solut ion liqui d Pap speci men must be colle cted befor e the endoc ervic al swab speci men. Not Available [place], [address], 10/11/2021 14:52:15 10/10/19 22 10/11/2021 CT/NG neisseria gonorrhoeae GC neg negati ve If both Pap and Endoc ervic al swabs are colle cted, the Prese rvCyt Solut ion liqui d Pap speci men must be colle cted befor e the endoc ervic al swab speci men. Not Available [place], [address], 10/11/2021 14:52:15 10/10/19 22 10/10/2021 bakari wet prep Hyphae Absent Not Available [facility] [address] [place], [address], 10/04/2021 11:24:52 09/03/20 22 09/09/2022 VAGIN ITIS PLUS STD PANEL bacterial vaginosis BV POS negati ve abnormal Not Available [place], [address], 09/10/2022 09:58:18 09/03/20 22 09/09/2022 VAGIN ITIS PLUS STD PANEL harrison species C. spp neg negati ve normal Not Available [address], [address], 09/10/2022 09:58:18 09/03/20 22 09/09/2022 VAGIN ITIS PLUS STD PANEL harrison glabrata C. gla neg negati ve normal Not Available [address], [address], 09/10/2022 09:58:18 09/03/20 22 09/09/2022 VAGIN ITIS PLUS STD PANEL trichomonas vaginalis CV/TV TRICH POS negati ve abnormal Not Available [address], [address], 09/10/2022 09:58:18 09/03/20 22 09/09/2022 VAGIN ITIS PLUS STD PANEL chlamydia trachomatis CT neg negati ve normal This repor t is inten ded for us in clini clark monit oring and manag ement of patie nts. It is not inten ded for use in medic al-le gal appli catio n. Not Available [address], [address], 09/10/2022 09:58:18 09/03/20 22 09/09/2022 VAGIN ITIS PLUS STD PANEL neisseria gonorrhoeae GC neg negati ve normal This repor t is inten ded for us in clini clark monit oring and manag ement of patie nts. It is not inten ded for use in medic al-le gal appli catio n. Not Available [address], [address], 09/10/2022 09:58:18 10/15/19 23 10/16/2022 VAGIN ITIS PLUS STD PANEL bacterial vaginosis BV POS negati ve abnormal Not Available [address], [address], 10/16/2022 17:28:54 10/15/19 23 10/16/2022 VAGIN ITIS PLUS STD PANEL harrison species C. spp neg negati ve normal Not Available [facility] [address] [place], [address], 10/16/2022 17:28:54 10/15/19 23 10/16/2022 VAGIN ITIS PLUS STD PANEL harrison glabrata C. gla neg negati ve normal Not Available [facility] [address] [place], [address], 10/16/2022 17:28:54 10/15/19 23 10/16/2022 VAGIN ITIS PLUS STD PANEL trichomonas vaginalis CV/TV TRICH neg negati ve normal Not Available [facility] [address] [place] [address], [address], 10/16/2022 17:28:54 10/15/19 23 10/16/2022 VAGIN ITIS PLUS STD PANEL chlamydia trachomatis CT neg negati ve normal This repor t is inten ded for us in clini clark monit oring and manag ement of patie nts. It is not inten ded for use in medic al-le gal appli catio n. Not Available [facility] [address] [place] [address], [address], 10/16/2022 17:28:54 10/15/19 23 10/16/2022 VAGIN ITIS PLUS STD PANEL neisseria gonorrhoeae GC neg negati ve normal This repor t is inten ded for us in clini clark monit oring and manag ement of patie nts. It is not inten ded for use in medic al-le gal appli catio n. Not Available [facility] [address] [place], [address], 10/16/2022 17:28:54 04/08/20 24 04/08/2024 HPV HIGH RISK HPV high risk merged to [id number] Not Available [facility] [address] [place], [address], 04/09/2024 09:57:16 04/08/20 24 04/11/2024 VAGIN ITIS PANEL bacterial vaginosis BV neg negati ve normal Not Available [address], [address], 04/11/2024 15:16:59 04/08/20 24 04/11/2024 VAGIN ITIS PANEL harrison species C. spp neg negati ve normal Not Available [address], [address], 04/11/2024 15:16:59 04/08/20 24 04/11/2024 VAGIN ITIS PANEL harrison glabrata C. gla neg negati ve normal Not Available [address], [address], 04/11/2024 15:16:59 04/08/20 24 04/11/2024 VAGIN ITIS PANEL trichomonas vaginalis CV/TV TRICH POS negati ve abnormal Not Available [address], [address], 04/11/2024 15:16:59 04/08/20 24 04/11/2024 CT/NG chlamydia trachomatis CT neg negati ve normal This repor t is inten ded for us in clini clark monit ori and manag ement [facility]. It is not inten ded for use in medic al-le gal appli catio n. Not Available [address], [address], 04/11/2024 15:17:01 04/08/20 24 04/11/2024 CT/NG neisseria gonorrhoeae GC neg negati ve normal This repor t is inten ded for us in clini clakr monit oring and manag ement of patie nts. It is not inten ded for use in medic al-le gal appli catio n. Not Available [address], [address], 04/11/2024 15:17:01 04/08/20 24 04/11/2024 HPV HIGH RISK HPV high risk Negati ve negati ve normal The HPV High Risk assay is inten ded for use as co-te sting with cytol ogy and not as a subst itute for regul ar cervi clark cytol ogy scree carley. This assay is not inten ded for use as a scree carley devic e for women under age 30 with odilia l cervi clark cytol ogy. Not Available [facility] [address] [place], [address], 04/11/2024 15:17:01 04/08/20 24 04/13/2024 THINP REP TIS PAP clinical information: normal None given Not Available [address] [place], [address], 04/13/2024 10:27:55 04/08/20 24 04/13/2024 THINP REP TIS PAP LMP: normal NONE GIVEN Not Available [address] [place], [address], 04/13/2024 10:27:55 04/08/20 24 04/13/2024 THINP REP TIS PAP prev. Pap: normal NONE GIVEN Not Available [address] [address] [place], [address], 04/13/2024 10:27:55 04/08/20 24 04/13/2024 THINP REP TIS PAP prev. BX: normal NONE GIVEN Not Available [address] [address] [place], [address], 04/13/2024 10:27:55 04/08/20 24 04/13/2024 THINP REP TIS PAP source: normal Cervi x Not Available [facility] [employer] [address] [address] [place], [address], 04/13/2024 10:27:55 04/08/20 24 04/13/2024 THINP REP TIS PAP statement of adequacy: normal Satis facto ry for evalu ation . Endoc ervic al/tr ansfo rmati on zone compo nent absen t. Age and/o r menst rual statu s not provi ded Not Available [address] [address] [place], [address], 04/13/2024 10:27:55 04/08/20 24 04/13/2024 THINP REP TIS PAP interpretati on/result: normal Cytol ogy Resul ts: Negat zhen for intra epith elial lesio n or malig barry . Not Available [address] [address] [place], [address], 04/13/2024 10:27:55 04/08/20 24 04/13/2024 THINP REP TIS PAP comment: normal This Pap test has been evalu ated with compu ter marion kaden techn ology . Not Available [address] [address] [place], [address], 04/13/2024 10:27:55 04/08/20 24 04/13/2024 THINP REP TIS PAP cytotechnolo gist: normal DDS, CT( CP) CT scree carley locat ion: [address] [address] [place] [address] Not Available [address] [address] [place], [address], 04/13/2024 10:27:55 04/08/20 24 04/13/2024 THINP REP TIS PAP comment EXPLA NATOR Y NOTE: The Pap is a scree carley test for cervi clark cance r. It is not a diagn ostic test and is subje ct to false negat zhen and false posit zhen resul ts. It is most relia ble when a satis facto ry sampl e, regul jacque obtai beverly, is submi tted with relev ant clini clark findi ngs and histo ry, and when the Pap resul t is evalu ated along with histo susi and curre nt clini clark infor matio n. Not Available [facility]. [address] [address] [address], [place], [address], 04/13/2024 10:27:55 Result Notes None recorded. Problems No Known Problems Procedures Surgical History Date Name Laterality Status Provider Name and Address Organization Details Recorded Time 4 Date of Last Pap Smear completed [facility] 04/06/2024 17:21:55 6 delivery completed [facility] 10/10/2021 10:58:18 6 delivery completed [facility] 10/10/2021 10:58:09 2 delivery completed [facility] 10/10/2021 10:57:56 Imaging Results None recorded. Procedure Notes None recorded. Medical Equipment None Reported. Allergies No known drug allergies Medications Name Sig Start Date Stop Date Status Note LastModified by Organization Details LastModified Time status covid-19/fl u a&b antigen tst TEST DIRECTED TODAY 04/08 completed Not Available Not Available Not Available hydrocodone 5 mg-acetamin ophen 325 mg tablet TAKE 1 TABLET BY MOUTH EVERY 4-6 HOURS NEEDED 09/03 completed Not Available Not Available Not Available metronidazo le 500 mg tablet TAKE 4 TABLETS BY MOUTH NOW WITH FOOD active Not Available Not Available No t Available losartan 100 mg-hydrochl orothiazide 25 mg tablet TAKE 1 TABLET BY MOUTH DAILY active Not Available Not Available No t Available hydrochloro thiazide 25 mg tablet 04/08 completed Not Available Not Available Not Available losartan 50 mg-hydrochl orothiazide 12.5 mg tablet TAKE 1 TABLET BY MOUTH DAILY 09/03 completed Not Available Not Available Not Available fluoxetine 20 mg capsule TAKE 1 CAPSULE BY MOUTH DAILY 04/08 completed Not Available Not Available Not Available amoxicillin 875 mg-potassiu m clavulanate 125 mg tablet TAKE 1 TABLET BY MOUTH EVERY 12 HOURS FOR 7 DAYS 04/08 completed Not Available Not Available Not Available nitrofurant oin monohydrate /macrocryst als 100 mg capsule TAKE 1 CAPSULE BY MOUTH EVERY 12 HOURS FOR 7 DAYS 10/10 completed Not Available Not Available Not Available ID NOW COVID-19 Test Kit TEST DIRECTED TODAY 10/10 completed Not Available Not Available Not Available Vitals Date Recorded Body height Body mass index (BMI) Body weight Systolic And Diastolic Provider Name and Address Organization Details Last Updated DateTime 10/10/2021 162.56 cm 40.3 kg/m2 658807.21 g 122/80 mm[Hg] Dai Joshua [facility] 10/10/2021 10:56:03 Date Recorded Body height Provider Name an d Address Organization Details Last Updated DateTime 10/15/2022 162.56 cm Dai Joshua [facility] 10/15/2022 10:53:02 Date Recorded Body height Body mass index (BMI) Body weight Systolic And Diastolic Provider Name and Address Organization Details Last Updated DateTime 04/08/2024 162.56 cm 38.6 kg/m2 647876.28 g 140/84 mm[Hg] [facility] 04/08/2024 16:43:21 Date Recorded Body height Body mass index (BMI) Body weight Systolic And Diastolic Provider Name and Address Organization Details Last Updated DateTime 09/03/2022 162.56 cm 38.1 kg/m2 631397.51 g 124/80 mm[Hg] Dai Joshua [facility] [employer] [facility] 09/03/2022 10:21:15 Social History Question Answer Notes LastModified by Organizat ion Details LastModified Time Tobacco Smoking Status Never Smoker Dai Joshua [facility] 04/08/2024 16:43:34 Are You Blind Or Do You Have Difficulty Seeing? No [email or web address] Information not available 04/08/2024 Are You Deaf Or Do You Have Serious Difficulty Hearing? No [email or web address] Information not available 04/08/2024 What Type Of Diet Are You Following? REGULAR [email or web address] Information not available 04/08/2024 How Many Children Do You Have? 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 Single [email or web address] Information not available 09/03/2022 Are You Sexually Active? Yes [email or web address] Information not available 04/08/2024 Sex: Unknown Functional Status Question Answer Note LastModified by Organizat ion Details LastModified Time Do you use any illicit or recreational drugs? No [email or web address] Information not available 04/08/2024 What is your level of alcohol consumption? Occasional [email or web address] Information not available 04/08/2024 Are you currently employed? Yes [email or web address] Information not available 04/08/2024 Do you or have you ever used e-cigarettes or vape? Never used electronic cigarettes [email or web address] Information not available 04/08/2024 What is your exercise level? Moderate [email or web address] Information not available 04/08/2024 Mental Status None recorded. Family History Relationship Description Onset Age of this Age Resolved Age Notes LastModified by Organization Details LastModified Time Father No current problems or disability [email or web address] Not available 08/15 10:22:00 Mother No current problems or disability [email or web address] Not available 08/15 10:22:00 Medical History Condition Response Other Cancer N High Blood Pressure Y Colon Cancer N Cytomegalovirus N Hyperthyroidism N MRSA N Breast Cancer N Herpes (HSV) N Blood Transfusion N Lung Cancer N Depression N Hypothyroidism N Incontinence N Panic Attacks N Neurological Disorder N Deep Vein Thrombosis N Anxiety Disorder N Autoimmune disease N Arthritis N Tuberculosis/Positive PPD N Shingles N Polycystic Ovarian Syndrome N Cervical Cancer N Hematuria N Chlamydia N Stroke N Varicosities N Seasonal allergies N Crohn's Disease N Alzheimer's/Dementia N COPD/Emphysema N Endometriosis N HPV/Genital Warts N IBS (Irritable Bowel Syndrome) N History of Abnormal Pap N High Cholesterol N Liver Disease N Kidney Infection N Fibromyalgia N Ulcer N Kidney Disease N HIV N Gallbladder disease N Sickle Cell Disease/Trait N Von Willebrand disease N ADD/ADHD N Eating Disorder N Anemia N Diabetes Mellitus (non-insulin dependent ) N Multiple Sclerosis N Ovarian Problems N Gonorrhea N Frequent Urinary Tract infections N Osteopenia N Headaches/migraines N GERD (reflux) N Ovarian Cancer N Diabetes (insulin dependent) N Seizures/Epilepsy N Fibroids N Asthma N Heart Attack N Lupus N Endometrial Cancer N Rubella N Blood Clotting Disorder N Bipolar Disorder N Diabetes Mellitus (during ) N Ulcerative Colitis N Hepatitis N Heart Disease N Pulmonary Embolism N RPR N Chicken Pox N Osteoporosis N Gynecological History Statement/Question Response Flow Moderate Date of last HPV 04/08/2024 Frequency of Cycle (Q days) 25 Date of LMP 03/18/2024 Date of Last Pap Smear 04/08/2024 Duration of Flow (days) 4-5 Most Recent Mammogram Current Control Method Tubal Ligat ion Age at Menarche 11 Obstetrics History GPAL:G 5 P 3 0 2 3 Type Value Full Term 3 Spontaneous 2 Living 3 Total 5 Past Encounters Encounter ID Performer Location Encounter Start Date Encounter Closed Date Diagnosis/Indication Diagnosis SNOMED-CT Code Diagnosis ICD10 Code Diagnosis IMO Codes Diagnosis Note [id number] JOJO Jessica [facility] [address] [place] [address] 10/10/2021 10:51:31 10/10/2021 11:08:05 Vaginal discharge 081224151 N89.8 N76.0 Venereal d isease screening 320702283 Z11.3 Infection screening 2437 45809 Z11.9 [id number] JOJO Jessica [address] [address] 09/03/2022 10:18:21 09/03/2022 11:00:43 Gynecologic examination 53021327 Z01.419 36y.o. here for annual exam. - Pap UTD/ HPV cotesting Discussed natural course of HPV infection, ASCCP guidelines . - Mammo at age 39, no increased risk - BMI counseling , diet and exercise reviewed - RTO for annual or PRN Screening for disorder 484118477 Z11.3 N89.9 -Vaginitis plus performed - Reviewed vulvar hygiene: avoid tight or moist clothing, soaps, Vagisil and other wipes, cotton underwear only and sleep without, unscented detergent - Discussed potential for Rephresh gel if neg test - Start probiotic - RTO for annual or as needed Menorrhagia 972754396 N9 2.0 Discussed all methods both surgical and hormonal to alleviate her sx. Will have pelvic u/s performed and develop further plan of care. 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 Depression score of 8 Bacterial vaginosis 4197 69599 N76.0 Depression screening 171 950199 Z13.31 PHQ9: 15. Pt educated on abnormal scoring, and discussed recommenda tion for referral to psych for further management . [id number] JOJO Jessica [address] [place] [address] 10/15/2022 10:41:06 10/15/2022 11:07:30 Vaginal discharge 948991173 N89.8 N76.0 Atrophic vaginitis 23979 000 N95.2 Screening for disorder 236903249 Z11.3 N89.9 -Vaginitis plus performed - Reviewed vulvar hygiene: avoid tight or moist clothing, soaps, Vagisil and other wipes, cotton underwear only and sleep without, unscented detergent - Discussed potential for Rephresh gel if neg test - Start probiotic - RTO for annual or as needed Education about sexually transmitted disease prevention 779864556 Z70.8 Discussed the various types of STDs, related symptoms and the potential consequenc es (including effects on fertility) of STD infections . Reviewed ways to limit exposure and prevention techniques . [id number] JOJO Jessica [address] [address] 04/08/2024 16:40:37 04/08/2024 16:54:27 Gynecologic examination 12786808 Z01.419 38y.o. here for annual exam.- Pap today/ HPV cotesting Discussed natural course of HPV infection, ASCCP guidelines .- Mammo at age 39, no increased risk- BMI counseling , diet and exercise reviewed- RTO for annual or PRN Screening for malignant neoplasm of cervix 854820942 Z12.4 ASCCP guidelines reviewed with pt. Pap collected and sent. Further POC pending lab result review. Pt states understand ing of POC. Depression screening 171 Z13.31 see intake screening tool Vaginitis 92611399 N76.0 - Reviewed vulvar hygiene: avoid tight or moist clothing, soaps, Vagisil and other wipes, cotton underwear only and sleep without, unscented detergent - Discussed potential for Rephresh gel if neg test - Continue probiotic - RTO for annual or as needed Health Concerns Section Related Observation LastModified by Organization Detai ls LastModified Time None Recorded Concern Status LastModified by Organization Details LastModified Time None Recorded Advance Directives Directive None Recorded Payers Insurance Date Sequence Insurance Name Policy Number Policy Bearden Covered Member ID Bearden Member ID Guarantor Name 06/20/2024 1 [facility] [id number] Rahel Covington [id number] Rahel Covington 10/18/2023 PAYMENT PLAN Rahel Covington Notes Date Note Type Note Provider Name and Address Organization Details Recorded Time 2 text/html Vaginal/Vulvar ProblemReported by PatientROS as noted in the HPI Rahel presents for c/o vaginal discharge and odor. She is sexually active and requests STD testing. JOJO Jessica [address] [facility], [place], [address], [facility] [employer] [facility] 10/10/2021 11:09:40 2 text/html Vaginal/Vulvar ProblemReported by Patient Annual GYNReported by PatientGenitourinary symptomsFor menstrual cycle, patient reportsmenorrhagia. For vagina, patient reportsfoul-smellingandwh ite. For urinary symptoms, patient reportsno hematuriaandno incontinence. For vulva, patient reportsno genital lesion.Breast symptomsFor breast, patient reportsno breast pain,no breast lump, andno nipple discharge.Endocrine symptomsFor sexual complaints, patient reportsno sexual complaints,no pain during intercourse, andnormal libido. For menopausal symptoms, patient reportsno menopausal symptomsandnormal vaginal lubrication.Psychological symptomsFor psychological symptoms, patient reportsdepressionandanxie ty.ROS as noted in the HPI Rahel is here for her AEX. Her last pap was 02/18/20. She denies hx of abnormal paps. She has been experiencing vaginal discharge x 3 months. She is also experiencing odor. She is currently not sexually active. She requests GC/CT testing. Her hx is notable for a BTL. Her menses are becoming heavier each month. JOJO Jessica [address] [facility], [place], [address], [facility] [employer] [facility] 09/03/2022 10:55:30 3 text/html Vaginal/Vulvar ProblemReported by PatientROS as noted in the HPI Rahel is here for her LEYDA from her 09/03/22 Trich and BV+ culture. She was tx'd with Flagyl. She is asymptomatic. Her partner is incarcerated.Her last pap was 02/18/20. She denies hx of abnormal paps.She is currently not sexually active.Her hx is notable for a BTL. Paula FonsecaJOJO [address] [facility], [place], [address], [facility] [employer] [facility] 10/15/2022 11:07:14 4 text/html Annual GYNReported by PatientGenitourinary symptomsFor vagina, patient reportsfoul-smellingandwh ite. For menstrual cycle, patient reportsnormal menses. For urinary symptoms, patient reportsno hematuriaandno incontinence. For vulva, patient reportsno genital lesion.Breast symptomsFor breast, patient reportsno breast pain,no breast lump, andno nipple discharge.Endocrine symptomsFor sexual complaints, patient reportsno sexual complaints,no pain during intercourse, andnormal libido. For menopausal symptoms, patient reportsno menopausal symptomsandnormal vaginal lubrication.Psychological symptomsFor psychological symptoms, patient reportsdepressionandanxie ty.ROS as noted in the HPI Rahel is here for her AEX. Her last pap was 02/18/20. She requests GC/CT testing. Her hx is notable for a BTL. She has a hx of depression and anxiety. She is not on medication at this time. She has a hx of vaginitis. She is currently experiencing vaginal discharge/odor. She has HTN JOJO Jessica [address] [facility], [place], [address], [facility] [employer] [facility] 04/08/2024 16:54:22 OBGyn Episode No OBEpisode recorded.
[2025-09-08 18:15] VITALS: BP 203/100; PULSE 65; RESP 18; TEMP 36.4; O2SAT 100
--- NOTE | 2025-09-08 18:37 | ED_ITS ---
HPI - Recheck/Abnormal Lab/Rx General Chief Complaint: Recheck/Abnormal Lab/Rx <Astrid Don APRN - Last Filed: 09/08/25 18:39> Stated Complaint: htn, form UC, 204/110 <Astrid Don APRN - Last Filed: 09/08/25 18:39> Time Seen by Provider: 09/08/25 18:37 <Astrid Don APRN - Last Filed: 09/08/25 18:39> Focused HPI: Patient is a 39-year-old female who presents to the ER with a headache, chest pain, and high blood pressure. She reports she was seen at urgent care earlier today and her blood pressure was in the 200s over 100s. Patient was advised to come to the ER for further evaluation. She denies any shortness of breath, cough, lower extremity edema, or recent fevers. Patient endorses a history of high blood pressure but is not currently taking it medication. GENERAL: Well-appearing, obese, and in no acute distress. HEAD: Normocephalic, atraumatic. CHEST: Clear to auscultation. ?No respiratory distress. HEART: Regular rate and rhythm.? NEURO: ?Alert and oriented x3. Patient screened in triage and initial orders placed.? ?Additional care and disposition to be based upon?diagnostic testing and treatment. <Astrid Don APRN - Last Filed: 09/08/25 18:39> Related Data Allergies/Adverse Reactions: Allergies Allergy/AdvReac Type Severity Reaction Status Date / Time No Known Allergies Allergy Verified 09/08/25 18:11 <Astrid Don APRN - Last Filed: 09/08/25 18:39> Review of Systems 2 Review of Systems: All systems reviewed & are unremarkable except as noted in HPI and below <Janis Martin PA-C - Last Filed: 09/08/25 20:20> [facility] Past Medical History Medical History: Medical History Encounter for general adult medical examination without abnormal findings Patient denies significant medical history <Astrid Don APRN - Last Filed: 09/08/25 18:39> Family History Family History: Family History Grandparent Hypertension Father Alcoholism <Astrid Don APRN - Last Filed: 09/08/25 18:39> Social History Social History: Social History Smoking status: Never smoker Alcohol intake: current Alcohol use details: occasionally Substance use: never Lack of Transportation: No Lack of Food: Never True Current Housing: I Have Housing Concerned About Future Housing: No Difficulty Paying Gas/Electric Bills: No Difficulty Paying for Meds: No Currently Unemployed: No Education: Associate Degree Difficulty w/ Childcare or Family Care: No Living arrangements: with family Occupation/Education: occupation 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 HEAD: Normocephalic, atraumatic. EYES: EOMI. CHEST: Clear to auscultation. No respiratory distress. No wheezes rales or rhonchi HEART: Regular rate and rhythm. No murmur heard. Normal peripheral pulses. ABDOMEN: Soft, nontender, nondistended, normal active bowel sounds. EXTREMITIES: Normal range of motion. No edema. SKIN: Warm, dry, no rash. NEURO: No focal deficits. Alert and oriented x3. PSYCH: Normal mood and affect <Janis Martin PA-C - Last Filed: 09/08/25 20:20> Course Vital Signs Vital signs: Vital Signs Temperature 97.6 F 09/08/25 18:15 Pulse Rate 65 09/08/25 18:15 Respiratory Rate 18 09/08/25 18:15 Blood Pressure 203/100 H 09/08/25 18:15 Pulse Oximetry 100 09/08/25 18:15 Temperature 97.6 F 09/08/25 18:15 Pulse Rate 70 09/08/25 19:05 Respiratory Rate 17 09/08/25 19:05 Blood Pressure 158/116 H 09/08/25 19:05 Pulse Oximetry 100 09/08/25 19:05 <Astrid Don APRN - Last Filed: 09/08/25 18:39> Vital Signs Temperature 97.6 F 09/08/25 18:15 Pulse Rate 65 09/08/25 18:15 Respiratory Rate 18 09/08/25 18:15 Blood Pressure 203/100 H 09/08/25 18:15 Pulse Oximetry 100 09/08/25 18:15 Temperature 97.6 F 09/08/25 18:15 Pulse Rate 70 09/08/25 19:05 Respiratory Rate 17 09/08/25 19:05 Blood Pressure 158/116 H 09/08/25 19:05 Pulse Oximetry 100 09/08/25 19:05 <Janis Martin PA-C - Last Filed: 09/08/25 20:20> [facility] Narrative Medical decision making narrative: Patient presents to the emergency department for elevated blood pressure. Known history of hypertension. Not taking her medication. Blood pressure down trended after giving her her medication. Cbc without concerning findings. Metabolic panel mild hypokalemia, potassium replaced. EKG without acute ST changes, baseline troponin is negative. Chest x-ray without acute cardiopulmonary abnormality. CT brain without acute findings. Patient updated on her workup, agrees with plan of care. Close follow-up with PCP <Janis Martin PA-C - Last Filed: 09/08/25 20:20> Differential Diagnosis Differential Diagnosis: Chronic hypertension, hypertensive urgency <Janis Martin PA-C - Last Filed: 09/08/25 20:20> Lab Data [facility] Lab Attestation statement: I personally reviewed the patient's lab results. <Janis Martin PA-C - Last Filed: 09/08/25 20:20> Result diagrams: 09/08/25 18:38 09/08/25 18:38 <Astrid Don APRN - Last Filed: 09/08/25 18:39> Labs: Lab Results 09/08/25 Range/Units 18:38 WBC 6.1 (4.5-10.0) K/mm3 RBC 4.28 (4.2-5.4) M/mm3 Hgb 12.0 (12.0-15.0) g/dL Hct 37.7 (37.0-47.0) % MCV 88.1 (80-100) fl MCH 28.0 (26-34) pg MCHC 31.8 L (32-36) g/dl RDW 14.6 H (11.5-14.5) % Plt Count 292 (150-375) k/mm3 MPV 10.9 H (7.4-10.4) fl Immature Gran % (Auto) 0.2 (0-0.5) % Neut % (Auto) 36.1 L (45.5-73.1) % Lymph % (Auto) 53.2 H (18.3-44.2) % Mcmullen % (Auto) 6.4 (2.6-8.5) % Eos % (Auto) 2.8 (0-4.4) % Baso % (Auto) 1.3 H (0.2-1.2) % Lymph # (Auto) 3.24 H (0.9-3.2) K/mm3 Mcmullen # (Auto) 0.4 (0.1-0.6) K/mm3 Eos # (Auto) 0.2 (0-0.3) K/mm3 Baso # (Auto) 0.1 (0.0-0.1) K/mm3 Abs Immat Gran (auto) 0.01 (0.00-0.031) K/mm3 Absolute Neuts (auto) 2.2 (1.3-6.7) K/mm3 Absolute Nucleated RBC 0.000 (0.0-0.012) K/mm3 Nucleated RBC % 0.0 (0.0-0.2) % PT 13.6 (11.1-14.7) Seconds INR 1.0 APTT 27.4 (22.3-36.8) Seconds Sodium 138 (137-145) mmol/L Potassium 3.3 L (3.4-5.0) mmol/L Chloride 104 (98-107) mmol/L Carbon Dioxide 26 (22-30) mmol/L Anion Gap 8 (4-12) mmol/L BUN 15 (7-17) mg/dL Creatinine 0.95 (0.7-1.0) mg/dL Estim Creat Clear Calc 82 ml/min Estimated GFR > 60 (59 - ) Glucose 121 H (65-110) mg/dL Calcium 9.2 (8.4-10.2) mg/dL Magnesium 1.6 (1.6-2.3) mg/dL Total Bilirubin 0.5 (0.2-1.3) mg/dL AST 27 (14-36) U/L ALT 14 (6-35) U/L Alkaline Phosphatase 69 (38-126) U/L Troponin I < 0.012 (0.000-0.034) ng/mL NT-Pro-B Natriuret Pep 222 H (19.9-100) pg/mL Total Protein 7.9 (6.3-8.2) g/dL Albumin 4.3 (3.5-5.1) g/dL Lipase 99 (23-300) U/L <Astrid Don, RELAY TESTER HELPER - Last Filed: 09/08/25 18:39> Lab Results 09/08/25 Range/Units 18:38 WBC 6.1 (4.5-10.0) K/mm3 RBC 4.28 (4.2-5.4) M/mm3 Hgb 12.0 (12.0-15.0) g/dL Hct 37.7 (37.0-47.0) % MCV 88.1 (80-100) fl MCH 28.0 (26-34) pg MCHC 31.8 L (32-36) g/dl RDW 14.6 H (11.5-14.5) % Plt Count 292 (150-375) k/mm3 MPV 10.9 H (7.4-10.4) fl Immature Gran % (Auto) 0.2 (0-0.5) % Neut % (Auto) 36.1 L (45.5-73.1) % Lymph % (Auto) 53.2 H (18.3-44.2) % Mcmullen % (Auto) 6.4 (2.6-8.5) % Eos % (Auto) 2.8 (0-4.4) % Baso % (Auto) 1.3 H (0.2-1.2) % Lymph # (Auto) 3.24 H (0.9-3.2) K/mm3 Mcmullen # (Auto) 0.4 (0.1-0.6) K/mm3 Eos # (Auto) 0.2 (0-0.3) K/mm3 Baso # (Auto) 0.1 (0.0-0.1) K/mm3 Abs Immat Gran (auto) 0.01 (0.00-0.031) K/mm3 Absolute Neuts (auto) 2.2 (1.3-6.7) K/mm3 Absolute Nucleated RBC 0.000 (0.0-0.012) K/mm3 Nucleated RBC % 0.0 (0.0-0.2) % PT 13.6 (11.1-14.7) Seconds INR 1.0 APTT 27.4 (22.3-36.8) Seconds Sodium 138 (137-145) mmol/L Potassium 3.3 L (3.4-5.0) mmol/L Chloride 104 (98-107) mmol/L Carbon Dioxide 26 (22-30) mmol/L Anion Gap 8 (4-12) mmol/L BUN 15 (7-17) mg/dL Creatinine 0.95 (0.7-1.0) mg/dL Estim Creat Clear Calc 82 ml/min Estimated GFR > 60 (59 - ) Glucose 121 H (65-110) mg/dL Calcium 9.2 (8.4-10.2) mg/dL Magnesium 1.6 (1.6-2.3) mg/dL Total Bilirubin 0.5 (0.2-1.3) mg/dL AST 27 (14-36) U/L ALT 14 (6-35) U/L Alkaline Phosphatase 69 (38-126) U/L Troponin I < 0.012 (0.000-0.034) ng/mL NT-Pro-B Natriuret Pep 222 H (19.9-100) pg/mL Total Protein 7.9 (6.3-8.2) g/dL Albumin 4.3 (3.5-5.1) g/dL Lipase 99 (23-300) U/L <Janis Martin PA-C - Last Filed: 09/08/25 20:20> Imaging Data Radiologist's impression: ITS Impressions Head CT 09/08/25 19:10 IMPRESSION: 1. No acute intracranial abnormality. Chest X-Ray 09/08/25 19:12 IMPRESSION: 1: NO ACUTE CARDIOPULMONARY DISEASE. <Astrid Don APRN - Last Filed: 09/08/25 18:39> ITS Impressions Head CT 09/08/25 19:10 IMPRESSION: 1. No acute intracranial abnormality. Chest X-Ray 09/08/25 19:12 IMPRESSION: 1: NO ACUTE CARDIOPULMONARY DISEASE. <Janis Martin PA-C - Last Filed: 09/08/25 20:20> ECG Data EKG #1: ECG completion date: 09/08/25 <Janis Martin PA-C - Last Filed: 09/08/25 20:20> bradycardia, sinus rhythm, no ST changes and normal QT <Janis Martin PA-C - Last Filed: 09/08/25 20:20> Critical Care Time Critical Care Time Critical Care Time: No <Janis Martin PA-C - Last Filed: 09/08/25 20:20> Discharge Plan Discharge Clinical Impression: Hypokalemia, Hypomagnesemia Hypertension Qualifiers: Hypertension type: unspecified Qualified Code(s): I10 - Essential (primary) hypertension <Astrid Don APRN - Last Filed: 09/08/25 18:39> Patient Disposition: Home <Astrid Don APRN - Last Filed: 09/08/25 18:39> Condition: Stable <Astrid Don APRN - Last Filed: 09/08/25 18:39> Instructions: Hypokalemia (ED), Chronic Hypertension (ED), Hypomagnesemia (ED) <Astrid Don APRN - Last Filed: 09/08/25 18:39> Additional Instructions: Return to the emergency department if you experience fever, chest pain, shortness of breath, abdominal pain with nausea and vomiting, weakness, numbness, or any other symptoms that are concerning to you. Take blood pressure medication as prescribed Follow up with primary care doctor <Astrid Don APRN - Last Filed: 09/08/25 18:39> Patient Language: Canadian <Astrid Don APRN - Last Filed: 09/08/25 18:39> Prescriptions: New losartan-hydrochlorothiazide [Hyzaar] 100-12.5 mg tablet 1 tablet PO DAILY 30 Days Qty: 30 0RF No Action lidocaine [Lidocan III] 5 % adhesive patch,medicated 1 patch topical DAILY Qty: 15 0RF Rx Instructions: leave on most painful area for up to 12 hrs losartan-hydrochlorothiazide 100-25 mg tablet 1 tablet PO DAILY Qty: 30 0RF losartan-hydrochlorothiazide 100-25 mg tablet 1 tablet PO DAILY Qty: 90 0RF <Astrid Don, RELAY TESTER HELPER - Last Filed: 09/08/25 18:39> Follow-up/Referrals: PHYSICIAN,RN CLINICAL APPEALS [Primary Care Provider, Internal Medicine] Davion Montesinos MD [Physician, Family Practice] <Astrid Don, RELAY TESTER HELPER - Last Filed: 09/08/25 18:39>
[2025-09-08 18:49] LABS: Hematocrit 37.7 % (37.0-47.0); Hemoglobin 12.0 g/dL (12.0-15.0); Immature Granulocyte Percent A 0.2 % (0-0.5); Lymphocytes Absolute Auto 3.24 K/mm3 (0.9-3.2); Mean Corpuscular HGB Conc 31.8 g/dl (32-36); Mean Corpuscular Hemoglobin 28.0 pg (26-34); Mean Corpuscular Volume 88.1 fl (80-100); Nucleated Red Blood Cells Absolute Auto 0.000 K/mm3 (0.0-0.012); Nucleated Red Blood Cells Perc 0.0 % (0.0-0.2); Platelet Count Result 292 k/mm3 (150-375); Red Blood Count 4.28 M/mm3 (4.2-5.4); White Blood Count 6.1 K/mm3 (4.5-10.0)
[2025-09-08 18:59] LABS: INR 1.0; Prothrombin Time 13.6 Seconds (11.1-14.7)
[2025-09-08 19:00] LABS: Partial Thromboplastin Time 27.4 Seconds (22.3-36.8)
[2025-09-08] MEDS: ASPIRIN 81 MG CHEWABLE TABLET 324 MG PO (19:03)
[2025-09-08] MEDS: LOSARTAN POTASSIUM 100 MG TABLET PO (19:03)
[2025-09-08 19:05] VITALS: BP 158/116; PULSE 70; RESP 17; O2SAT 100
[2025-09-08 19:13] LABS: Alanine Aminotransferase 14 U/L (6-35); Albumin Level 4.3 g/dL (3.5-5.1); Alkaline Phosphatase 69 U/L (38-126); Anion Gap 8 mmol/L (4-12); Aspartate Amino Transferase 27 U/L (14-36); Bilirubin,Total 0.5 mg/dL (0.2-1.3); Blood Urea Nitrogen 15 mg/dL (7-17); Calcium 9.2 mg/dL (8.4-10.2); Carbon Dioxide 26 mmol/L (22-30); Chloride 104 mmol/L (98-107); Estimated CRCL calculation 82 ml/min; Estimated Glomerular Filt Rate > 60; Glucose 121 mg/dL (65-110); Lipase 99 U/L (23-300); Potassium 3.3 mmol/L (3.4-5.0); Sodium 138 mmol/L (137-145); Total Protein 7.9 g/dL (6.3-8.2)
[2025-09-08 19:27] LABS: NT Pro B Type Natriuretic Pept 222 pg/mL (19.9-100); Troponin I < 0.012 ng/mL (0.000-0.034)
[2025-09-08 20:03] LABS: Magnesium 1.6 mg/dL (1.6-2.3)
[2025-09-08] MEDS: POTASSIUM CHLORIDE 20 MEQ ER TABLET 40 MEQ PO (20:18)
[2025-09-08] MEDS: MAGNESIUM OXIDE 400 MG TABLET PO (20:25)
== END 2025-09-08 20:33 | disposition home or self-care (01) ==
PROVIDERS: Emergency Medicine; Emergency Provider Physician Assistant
DX: I10 Essential (primary) hypertension (principal); E83.42 Hypomagnesemia; E87.6 Hypokalemia; R94.31 Abnormal electrocardiogram [ECG] [EKG]; R00.1 Bradycardia, unspecified
CPT/HCPCS: 36415; 70450; 71046; 80053; 83690; 83735; 83880; 84484; 85025; 85610; 85730; 93005; 99284; A9270